=== PATIENT | female | born 1965 | race Caucasian/White ===

== ENCOUNTER → 2016-09-23 | Outpatient (CLI) | payer OTHER ==
[~2016-09-23] MED LIST: AMILORIDE HCL5 M1 PO; BUMETANIDE 1MG T1 MG PO; CETIRIZINE HYDR10 MG OR; CITALOPRAM HYDR20 MG PO; EPINEPHRINE0.1 MG/ML IJ; FUROSEMIDE 40MG40 M1 PO; KLOR-CON M2020 ME1 PO; LEVOTHYROXIN0.025 M1 PO; METHOCARBAMOL750 M1 PO; METOLAZONE5 MG PO; MONTELUKAST SOD10 MG PO; RESTASIS0.05% OP; TRICOR145 M1 PO; VALSARTAN80 MG PO; WALK5 XX; XOPENOX 0.0.63 MG/3 IN
--- NOTE | 2016-09-23 16:12 | RADIOLOGY REPORT PS360 ---
ANKLE-LT-3 VIEWS HISTORY: Follow-up fracture POST OP FU ORDERING PHYSICIAN: Parag Win MD PATIENT AGE: 50 years COMPARISON: 09/16/2016 FINDINGS: Status post ORIF distal fibular and medial malleolus fracture with good alignment of fracture fragments. There is a bone plate present over the distal fibula multiple screws. In addition there is one screw which traverses anterior to posterior at the mid aspect of the bone plate but not through the bone plate. The screw has some lucency around the posterior aspect with some minimal displacement noted of the fibula at this region posteriorly. It is uncertain whether this represents a new finding or was not previously seen due to the positioning. Continued follow-up is recommended. Medial malleolus fracture is in good alignment. IMPRESSION: Status post ORIF distal fibular and medial malleolus fracture as detailed above.
== END ==
LOC: RAD 15:18
DX: Z47.89 Encounter for other orthopedic aftercare (principal)

== ENCOUNTER → 2016-10-24 | Outpatient (CLI) | payer OTHER ==
--- NOTE | 2016-10-24 11:18 | RADIOLOGY REPORT PS360 ---
ANKLE-LT-3 VIEWS HISTORY: Follow-up fracture S/P SURGERY FU ORDERING PHYSICIAN: Parag Win MD PATIENT AGE: 50 years COMPARISON: 10/07/2016 FINDINGS: Status post ORIF medial malleolus and distal fibular fracture with multiple screws present as well as a bone plate within the distal fibula. The oblique fracture distal fibula is still patent superiorly with persistent lucency around the screw that extends from the anterior to posterior aspect of the fibula fracture not significantly changed. IMPRESSION: Good alignment status post ORIF bimalleolar fracture as described above not significantly changed
== END ==
LOC: RAD 09:18
DX: Z78.9 Other specified health status (principal)